=== PATIENT | female | born 1995 | race Caucasian/White ===

== ENCOUNTER → 2024-02-16 11:13 | Outpatient (REF) | payer OTHER, SELFPAY | LOC: RAD 11:13 | PROVIDERS: ATTENDING PHYSICIAN Internal Medicine Infectious Disease; FAMILY PHYSICIAN Family Medicine | DX: M25.571 Pain in right ankle and joints of right foot (principal); B20 Human immunodeficiency virus [HIV] disease | CPT/HCPCS: 73610; 73630 ==